=== PATIENT | female | born 1965 | race Hispanic/Latino ===

== ENCOUNTER 2017-02-20 06:54 | Day surgery (SDC) | payer OTHER ==
[2017-02-20] MEDS ORDERED: ECOTRIN PO ONE (07:17)
[2017-02-20] MEDS ORDERED: NACL 0.9% 500 ML 500 ML IV SCH (08:00)
[2017-02-20] MEDS ORDERED: HEPARIN/NS 5000 UNIT/500ML(CATH LAB) 1,000 ML IR ONE (08:11)
[2017-02-20] MEDS ORDERED: HEPARIN 10,000 UNITS/10 ML ONE (08:11)
[2017-02-20] MEDS ORDERED: VERSED ONE (08:11)
[2017-02-20] MEDS ORDERED: XYLOCAINE 2% INFILTRATI ONE (08:12)
[2017-02-20] MEDS ORDERED: NITROGLYCERIN SYRINGE 3 ML ONE (08:12)
[2017-02-20] MEDS ORDERED: SUBLIMAZE ONE (08:12)
[2017-02-20] MEDS ORDERED: CALAN ONE (08:19)
[2017-02-20] MEDS ORDERED: NACL 0.9% 0 ML ONE (08:46)
[2017-02-20] MEDS ORDERED: WATER FOR INJ (PF) 0 ML ONE (08:46)
[2017-02-20] MEDS ORDERED: ANGIOMAX IV ONE (08:46)
--- NOTE | 2017-02-20 09:26 | Short Stay Summary ---
Short Stay Documentation Date of service: 02/20/17 - History H&P: obtained from office - Allergies and Medications Current Medications: Allergies No Known Allergies Allergy (Verified 02/20/17 07:16) Home Medications Medication Instructions Recorded Confirmed Last Taken Type Aspirin [Adult Low Dose Aspirin EC] 81 mg PO DAILY 02/20/17 02/20/17 02/19/17 History Atenolol [Atenolol] 25 mg PO DAILY 02/20/17 02/20/17 02/19/17 History Lovastatin (Nf) [Mevacor (Nf)] 20 mg PO DAILY 02/20/17 02/20/17 02/19/17 History Nitroglycerin [Nitrostat] 0.4 mg SL Q5M PRN 02/20/17 02/20/17 Unknown History Trazodone HCl 50 mg PO QHS 02/20/17 02/20/17 02/19/17 History Active Medications Sodium Chloride (Nacl 0.9% 500 Ml) 500 mls @ 50 mls/hr IV DIRECT CSOTA Stop: 02/20/17 17:59 Last Admin: 02/20/17 07:40 Dose: 50 mls/hr - Brief post op/procedure progress note Date of procedure: 02/20/17 Pre-op diagnosis: sob Post-op diagnosis: same Procedure: see report Anesthesia: local Estimated blood loss: none Pathology: none - Disposition Condition at discharge: Good Disposition: DISCHARGED TO HOME OR SELFCARE - Discharge Diagnoses (1) SOB (shortness of breath) on exertion Status: Chronic (2) Abnormal cardiovascular stress test Status: Acute (3) Smoker unmotivated to quit Status: Chronic (4) Hyperlipemia, mixed Status: Chronic (5) Morbidly obese Status: Chronic Qualifiers: Obesity type: due to excess calories Qualified Code(s): E66.01 - Morbid ( severe) obesity due to excess calories Short Stay Discharge Plan Activity: advance as tolerated Diet: low fat, low cholesterol Follow up with: SAM DUMONT MD [Staff Physician] - 7 Days
[2017-02-20 11:14] VITALS: BP 132/87
--- NOTE | 2017-02-20 12:07 | Cardiac Catherization Report ---
LEFT HEART CATHETERIZATION ORDERING PHYSICIAN: ____ CLINICAL INFORMATION: This is a 51-year-old female with obesity, smoker, hypertension, hyperlipidemia who had an abnormal stress test with immediate ischemia in the inferior apical region presents with recurrent chest pain and shortness of breath with exertion. Left heart catheterization performed via the right radial artery, sterile technique, local anesthesia, 6-Danish radial sheath inserted. Left system was engaged with JL3.5 catheter. FINDINGS: 1. Left main is a medium caliber vessel, patent, bifurcates into medium to small caliber LAD, proximal is patent, mid diffuse 30%, distal patent, small diagonal 1 patent circumflex and AV groove is a medium caliber vessel is patent. OM1 is a medium caliber vessel, proximal 20% OM2 and has a small caliber vessel that is patent. RCA engaged with JR4, is a [id number] caliber vessel, proximal is patent, mid diffuse 20-30%, small PDA and PLV noted. LV gram done in LATVIAN and HUNT view shows normal LV function, LVEDP of 24 mmHg, LV is 157, aortic is 150/77. No gradient across the aortic valve on pullback. 5-Danish catheters were taken over a guidewire, 6-Danish radial sheath was discontinued. Radial dressing applied. No hematoma. No bleeding. SUMMARY: Left main patent, LAD mid diffuse 30%, circ patent, OM1 proximal 20-30%. RCA mid diffuse 20-30% and normal LV function. A small vessel disease distally continue risk factor modifications. JOB# [id number] JOHN/MARCELO
== END 2017-02-20 11:30 | disposition home or self-care (01) ==
LOC: OPU 06:54
PROVIDERS: ATTEND Internal Medicine
DX: I25.10 Atherosclerotic heart disease of native coronary artery without angina pectoris (principal); F17.210 Nicotine dependence, cigarettes, uncomplicated; E78.2 Mixed hyperlipidemia; I10 Essential (primary) hypertension; E66.01 Morbid (severe) obesity due to excess calories; Z68.38 Body mass index [BMI] 38.0-38.9, adult; Z79.899 Other long term (current) drug therapy; Z87.891 Personal history of nicotine dependence; Z83.3 Family history of diabetes mellitus; Z82.49 Family history of ischemic heart disease and other diseases of the circulatory system
CPT/HCPCS: 93005; 93010; 93458; C1894; J1644; J2250; J3010; J7040; J0583; Q9967

== ENCOUNTER 2018-11-04 09:05 | Day surgery (SDC) | payer OTHER ==
[2018-11-04] MEDS ORDERED: WATER FOR IRRIG STERILE IR ONE (09:42)
[2018-11-04] MEDS ORDERED: NACL 0.9% 1000 ML 1,000 ML IV SCH (10:00)
--- NOTE | 2018-11-04 10:04 | Anesthesia Consultation ---
Anesthesia Consult and Med Hx Date of service: 11/04/18 - Airway Anesthetic Teeth Evaluation: Edentulous ROM Head & Neck: Adequate Mental/Hyoid Distance: Adequate Mallampati Class: Class III Intubation Access Assessment: Possibly Difficult - Pre-Operative Health Status ASA Pre-Surgery Classification: ASA3 Proposed Anesthetic Plan: MAC - Pulmonary Hx Smoking: Yes COPD: Yes - Cardiovascular System Hx Hypertension: Yes Hx Heart Attack/AMI: No - Central Nervous System Hx Psychiatric Problems: No - Gastrointestinal Hx Ulcer: Yes - Other Systems Hx Cancer: No
--- NOTE | 2018-11-04 10:05 | Anesthesia Day of Surgery ---
Anesthesia Day of Surgery - Day of Surgery Patient Examined: Yes Patient H&P Reviewed: Yes Patient is NPO: Yes
[2018-11-04] MEDS ORDERED: DIPRIVAN 10 MG/ML IV ONE ×2 (10:52)
--- NOTE | 2018-11-04 11:35 | Procedure Note ---
Date of procedure: 11/04/18 Pre-op diagnosis: Epigastric Pain/Prior H/O Peptic Ulcer Disease/ Colon Polyp Screening Post-op diagnosis: other (Small Duodenal Ulcer/Duodenitis/ Gastritis/ Mild,Distal Esophagitis/ Solitary,Rectal Polyp (possibly Hyperplastic)/ Moderate, Left Colon Diverticular Disease/ [place],Internal Hemorrhoid) Procedure: EGD with Biopsy CColonoscopy with Biopsy Anesthesia: [facility] [place] Surgeon: ARIS GOMEZ Estimated blood loss: minimal Pathology: list Specimen disposition: to lab Condition: stable Disposition: same day (Treat with PPI and encourage fiber intake. Avoid aspirin and NSAID for 5 days and follow up in 1 to 2 weeks ([phone]).)
--- NOTE | 2018-11-04 12:01 | Operative Report ---
PROCEDURE: Colonoscopy with cold biopsy. INDICATIONS: This is a 53-year-old slightly obese white female, who had a colonoscopy done as part of colon polyp screening. Prior to the colonoscopy, she had an EGD done because of epigastric pain, which showed presence of a small duodenal ulcer, duodenitis, gastritis and mild esophagitis. At the end of the EGD, an Ambu bag had to be used because of the patient had a drop in her O2 saturation. PROCEDURE: Colonoscopy; however, was done without any complications. Initial rectal exam was unremarkable. Instrument was passed through the rectum onto the cecum, which was identified by the ileocecal valve and the appendiceal orifice. Visualization was fair. The mucosa was washed with copious amounts of water. The cecum, ascending colon, transverse colon showed normal mucosa. There was moderate diverticular disease noted in the left colon and the rectum showed a small solitary rectal polyp, possibly hyperplastic that was removed by cold biopsy and the rectum also showed some minor internal hemorrhoids on the retroverted view. There were no complications associated with the colonoscopy and minimal bleeding associated with a cold biopsy for removal of the rectal polyp. ASSESSMENT: Colon polyp screening. Small solitary rectal polyp, possibly hyperplastic. Moderate left colon diverticular disease, minor internal hemorrhoid. Plan is to encourage the patient to take fiber supplements and to the patient avoid aspirin and aspirin-related products for the next few days. The patient will be asked to take PPI for the upper endoscopic findings of a small duodenal ulcer, duodenitis and gastritis. The patient will also be advised to refrain from smoking and follow up in the office in 1-2 weeks' time. There were no complications with the procedure. RN, Alondra Ramirez was in the room throughout the entirety of the procedure. JOB# [id number] ROXANNE/MARCELO
[2018-11-04 12:02] VITALS: BP 123/71
--- NOTE | 2018-11-04 12:22 | Operative Report ---
PROCEDURE: EGD. INDICATIONS: A 53-year-old obese white female who has a prior history of peptic ulcer disease, history of smoking, lately has been having some epigastric pain and discomfort. EGD was done to make sure there was not any recurrence of any peptic ulcer disease. DESCRIPTION OF PROCEDURE: Procedure was done after getting informed consent with MAC anesthesia. Instrument was passed through the hypopharynx into the esophagus, which showed some mild distal esophagitis. Stomach showed gastritis, but no ulcers were noted within the gastric lumen either in the straight or the retroverted view. Biopsy was done from the gastric antrum as well as from the gastric body to rule out for H. pylori and atrophic gastritis. The pylorus was patent. The duodenum and the bulb showed duodenal erosions and a small duodenal ulcer. There was minimal bleeding from the biopsy sites. At the end of the procedure as the scope was withdrawn, the patient did have a drop in her O2 saturation and an Ambu bag had to be used for a short period of time to bring the oxygen level up to normal. ASSESSMENT: Epigastric pain, small duodenal ulcer, duodenitis, gastritis, mild distal esophagitis, minimal bleeding from the biopsy sites. The patient had a drop in the oxygen saturation, requiring the use of the Ambu bag at the end of the procedure. The patient will be discharged on PPI. Advised to refrain from smoking and to do a colonoscopy as part of colon polyp screening. RNAlondra was in the room throughout the entirety of the procedure. The patient will be asked to follow up in the office in 1-2 weeks' time. JOB# [id number] ROXANNE/MARCELO
== END 2018-11-04 09:06 | disposition home or self-care (01) ==
LOC: GIO 09:05
DX: Z12.11 Encounter for screening for malignant neoplasm of colon (principal); K29.70 Gastritis, unspecified, without bleeding; K62.1 Rectal polyp; K64.8 Other hemorrhoids; K31.9 Disease of stomach and duodenum, unspecified; K21.0 Gastro-esophageal reflux disease with esophagitis; K57.30 Diverticulosis of large intestine without perforation or abscess without bleeding; F17.210 Nicotine dependence, cigarettes, uncomplicated; E78.2 Mixed hyperlipidemia; E78.00 Pure hypercholesterolemia, unspecified; I10 Essential (primary) hypertension; J44.9 Chronic obstructive pulmonary disease, unspecified; E66.01 Morbid (severe) obesity due to excess calories; Z68.37 Body mass index [BMI] 37.0-37.9, adult; Z98.891 History of uterine scar from previous surgery; Z80.0 Family history of malignant neoplasm of digestive organs; Z79.82 Long term (current) use of aspirin; Z79.899 Other long term (current) drug therapy; Z98.890 Other specified postprocedural states; Z82.49 Family history of ischemic heart disease and other diseases of the circulatory system
CPT/HCPCS: 43239; 45380; 88305; 88342; J2704; J7030